=== PATIENT | male | born 1965 | race Caucasian/White ===

== ENCOUNTER 2020-04-10 15:34 | Emergency (ER) | payer MEDICARE ==
[2020-04-11] MEDS ORDERED: ZOFRAN ODT 4 MG4 MG PO (02:57)
[2020-04-11] MEDS ORDERED: NORCO 5-325 TA1 EACH PO (02:57)
[2020-04-11] MEDS ORDERED: IBUPROFEN600 MG PO (02:57)
== END 2020-04-10 16:31 | disposition left against medical advice (07) ==
LOC: ER1 15:34
DX: R10.9 Unspecified abdominal pain (principal); Z53.21 Procedure and treatment not carried out due to patient leaving prior to being seen by health care provider

== ENCOUNTER 2020-04-10 22:20 | Emergency (ER) | payer MEDICARE, OTHER ==
[2020-04-11 01:57] LABS: HEMOGLOBIN 17.1 gm/dl (14.0-17.5); RED BLOOD COUNT 5.84 M/UL (4.20-5.50); WHITE BLOOD COUNT 10.3 K/UL (4.5-11.0)
[2020-04-11 02:09] LABS: BUN/CREATININE RATIO 14 (0-10)
[2020-04-11] MEDS ORDERED: NORCO 5-325 TA1 EACH PO (02:57)
[2020-04-11] MEDS ORDERED: IBUPROFEN600 MG PO (02:57)
[2020-04-11] MEDS ORDERED: ZOFRAN ODT 4 MG4 MG PO (02:57)
== END 2020-04-11 03:07 | disposition home or self-care (01) ==
LOC: ER1 22:20
PROVIDERS: Urology
DX: N20.0 Calculus of kidney (principal)
CPT/HCPCS: 80053; 81001; 82550; 82553; 83690; 83874; 84484; 85025; 93005; 99284; Q9967

== ENCOUNTER 2020-08-25 11:04 | Emergency (ER) | payer MEDICARE, OTHER ==
[~2020-08-25 11:04] MED LIST: IBUPROFEN600 MG PO; NORCO 5-325 TA1 EACH PO; ZOFRAN ODT 4 MG4 MG PO
[2020-08-25 12:18] LABS: HEMOGLOBIN 16.8 gm/dl (14.0-17.5); RED BLOOD COUNT 5.73 M/UL (4.20-5.50); WHITE BLOOD COUNT 7.7 K/UL (4.5-11.0)
[2020-08-25 12:46] LABS: BUN/CREATININE RATIO 19 (0-10)
[2020-08-25] MEDS ORDERED: COLACE 100MG C100 MG PO (16:22)
[2020-08-25] MEDS ORDERED: BENTYL 10MG CAP10 MG PO (16:22)
[2020-08-25] MEDS ORDERED: CITRATE OF MAG296 ML PO (16:27)
== END 2020-08-25 16:59 | disposition home or self-care (01) ==
LOC: ER1 11:04
PROVIDERS: Emergency Medicine
DX: R10.9 Unspecified abdominal pain (principal); Z20.822 Contact with and (suspected) exposure to COVID-19
CPT/HCPCS: 71045; 76870; 80053; 81001; 83605; 83690; 85025; 99284; Q9967; U0002

== ENCOUNTER 2021-05-14 14:40 | Emergency (ER) | payer MEDICARE, OTHER ==
[~2021-05-14 14:40] MED LIST changes: +BENTYL 10MG CAP10 MG PO; +CITRATE OF MAG296 ML PO; +COLACE 100MG C100 MG PO
[2021-05-14 15:16] LABS: HEMOGLOBIN 16.7 gm/dl (14.0-17.5); RED BLOOD COUNT 5.72 M/UL (4.20-5.50); WHITE BLOOD COUNT 7.9 K/UL (4.5-11.0)
[2021-05-14 15:59] LABS: BUN/CREATININE RATIO 15 (0-10)
[2021-05-14] MEDS ORDERED: ZOFRAN ODT 4 MG4 MG SL (17:56)
[2021-05-14] MEDS ORDERED: BENTYL 20MG TAB20 MG PO (17:56)
== END 2021-05-14 18:26 | disposition home or self-care (01) ==
LOC: ER1 14:40
PROVIDERS: Student in an Organized Health Care Education/Training Program
DX: R10.9 Unspecified abdominal pain (principal); R11.0 Nausea; Z87.891 Personal history of nicotine dependence; K21.9 Gastro-esophageal reflux disease without esophagitis
CPT/HCPCS: 80053; 81001; 82150; 83690; 85025; 96374; 99284; J2405; J7030; Q9967